=== PATIENT | female | born 2000 | race Caucasian/White ===

== ENCOUNTER 2024-07-20 03:04 | Emergency (ER) | payer OTHER ==
[~2024-07-20] VITALS: Ht 160 cm; Wt 102.3 kg
[~2024-07-20 03:04] MED LIST: ACET-66 PO; MAG30ORA11 PO; OMEP-148 PO; ONDA-104 PO
[2024-07-20 03:55] VITALS: BP 128/78; PULSE 79; RESP 20; TEMP 98.6; O2SAT 98
[2024-07-20] MEDS: ERYTHROMYCIN 0.5% 3.5 GM TUBE OPHTHALMIC OINTMENT OU ONE (04:21)
[2024-07-20] MEDS: BENZONATATE 100 MG CAPSULE PO ONE (04:21)
[2024-07-20 04:42] LABS: COVID AG,FIA SOURCE NASAL SWAB
[2024-07-20 05:11] LABS: INFLUENZA TYPE A NEGATIVE FOR TYPE A (NEGATIVE); INFLUENZA TYPE B NEGATIVE FOR TYPE B (NEGATIVE); SARS-COV2 (COVID) ANTIGEN,FIA Negative (Negative)
[2024-07-20] MEDS ORDERED: BENZ-227 PO (05:14)
== END 2024-07-20 05:20 | disposition home or self-care (01) ==
LOC: EMS 03:05
DX: J06.9 Acute upper respiratory infection, unspecified (principal); H10.89 Other conjunctivitis; B97.89 Other viral agents as the cause of diseases classified elsewhere; Z90.49 Acquired absence of other specified parts of digestive tract; Z79.899 Other long term (current) drug therapy; Z20.822 Contact with and (suspected) exposure to COVID-19
CPT/HCPCS: 87804; 99283

== ENCOUNTER 2024-10-16 19:46 | Emergency (ER) | payer OTHER ==
[~2024-10-16] VITALS: Ht 160 cm; Wt 110.0 kg
[~2024-10-16 19:46] MED LIST changes: +BENZ-227 PO
[2024-10-16 20:10] VITALS: TEMP 98.2
[2024-10-16 20:34] LABS: BASOPHILS % (AUTO) 0.4 % (0.0-2.0); EOSINOPHILS % (AUTO) 1.8 % (1.0-6.0); HEMATOCRIT 39.7 % (36-46); HEMOGLOBIN 12.8 g/dL (12.0-16.0); LYMPHOCYTES # (AUTO) 3.7 K/uL (1.0-4.8); LYMPHOCYTES % (AUTO) 30.9 % (22.0-44.0); MEAN CORPUSCULAR HEMOGLOBIN 25.2 pg (26.0-34.0); MEAN CORPUSCULAR HGB CONC 32.1 G/dL (31.0-37.0); MEAN CORPUSCULAR VOLUME 78 fL (80-100); MONOCYTES # (AUTO) 1.3 K/uL (0.1-1.0); MONOCYTES % (AUTO) 10.7 % (2.0-9.0); NEUTROPHILS # (AUTO) 6.7 K/uL (1.8-7.7); NEUTROPHILS % (AUTO) 56.2 % (40.0-70.0); PLATELET COUNT (AUTO) 312 K/uL (150-450); RED BLOOD CELL COUNT(AUTO) 5.07 MIL/uL (4.00-5.20); RED CELL DISTRIBUTION WIDTH 15.5 % (11.5-14.5); WHITE BLOOD COUNT (AUTO) 11.9 K/uL (4.5-11.0)
[2024-10-16 20:44] LABS: ANION GAP 7 mmol/L (8-16); CALCIUM, TOTAL 9.2 mg/dL (8.8-10.5); CARBON DIOXIDE 27 mmol/L (22-29); CHLORIDE 103 mmol/L (98-107); GLOMERULAR FILTR. RATE CALC > 60 mL/min (>60); GLUCOSE,RANDOM 91 mg/dL (70-110); POTASSIUM 4.2 mmol/L (3.5-5.1); SODIUM SERUM 137 mmol/L (136-145); UREA NITROGEN, BLOOD 12 mg/dL (7-18)
[2024-10-16 20:51] LABS: APPEARANCE,URINE CLEAR (CLEAR); BILIRUBIN,URINE NEGATIVE (NEGATIVE); COLOR,URINE LIGHT YELLOW (YELLOW); GLUCOSE, URINE (UA) NEGATIVE (NEGATIVE); KETONES,URINE NEGATIVE (NEGATIVE); LEUKOCYTE ESTERASE ,URINE LARGE (NEGATIVE); NITRATE,URINE NEGATIVE (NEGATIVE); OCCULT BLOOD,URINE NEGATIVE (NEGATIVE); PH,URINE 6.5 (5.0-8.0); PROTEIN,URINE NEGATIVE (NEGATIVE); SPECIFIC GRAVITIY, URINE 1.017 (1.003-1.030); UROBILINOGEN,URINE <=1.0 mg/dL (<=1.0)
[2024-10-16 20:55] LABS: AMYLASE 50 U/L (25-115); HCG,QUANTITATIVE < 1 mIU/mL (0-6); LIPASE 28 U/L (16-77)
[2024-10-16 21:20] LABS: RBC,URINE 0-2 /HPF (0-2)
[2024-10-16 21:21] LABS: BACTERIA,URINE Few /HPF (None Seen); SQUAMOUS EPITHELIAL CELL,UR Few /LPF (None Seen)
[2024-10-16 23:24] LABS: ALBUMIN 3.8 g/dL (3.4-5.0); BILIRUBIN,DIRECT 0.1 mg/dL (0.00-0.20); BILIRUBIN,TOTAL 0.5 mg/dL (0.1-1.0); TOTAL PROTEIN, SERUM 7.7 g/dL (6.4-8.2)
[2024-10-16] MEDS: SODIUM CHLORIDE 0.9% 2,000 ML IV ONE (23:24)
[2024-10-16] MEDS: ONDANSETRON HCL 4 MG/2 ML VIAL IVP ONE (23:25)
[2024-10-16] MEDS: KETOROLAC TROMETHAMINE 30 MG/ML VIAL IVP ONE (23:25)
[2024-10-16] MEDS: MORPHINE SULFATE 4 MG/ML SYRINGE IVP ONE (23:25)
[2024-10-16] MEDS: CefTRIAXone 1 GM/DEXTROSE 50 ML IV ONE (23:26)
[2024-10-17] MEDS: HYDROmorphone HCL 2 MG/ML SYRINGE IVP ONE (00:29)
[2024-10-17 01:22] VITALS: BP 108/64; PULSE 58; RESP 16; O2SAT 96
[2024-10-17] MEDS ORDERED: HYDR-4062 PO (01:36)
[2024-10-17] MEDS ORDERED: IBUP-1554 PO (01:36)
[2024-10-17] MEDS ORDERED: CEPH-558 PO (01:36)
== END 2024-10-17 02:33 | disposition home or self-care (01) ==
LOC: EMS 19:46
DX: R10.84 Generalized abdominal pain (principal); F41.9 Anxiety disorder, unspecified; Z90.49 Acquired absence of other specified parts of digestive tract; F12.90 Cannabis use, unspecified, uncomplicated; Z79.899 Other long term (current) drug therapy
CPT/HCPCS: 99285; 74176; 96365; 96375; 80048; 80076; 81001; 82150; 83690; 84702; 85025; 87086; 36415; J1885; J0696; J2270; J2405; J7030; J1171; 99284